=== PATIENT | male | born 1985 | race Caucasian/White ===

== ENCOUNTER 2018-07-13 04:03 | Observation (INO) ==
[2018-07-13 05:45] LABS: Basophils # 0.1 K/mcL (0.0-0.2); Basophils % 0.8 %; Eosinophils % 0.1 %; Hematocrit 47.2 % (37.5-50.1); Hemoglobin 17.4 g/dL (12.9-16.9); Immature Granulocytes % 0.4 % (0-4); Lymphocytes # 2.4 K/mcL (0.6-4.6); Lymphocytes % 30.6 %; Mean Corpuscular HGB Conc 36.9 g/dL (31.6-35.5); Mean Corpuscular Hemoglobin 34.1 pg (28.0-33.3); Mean Corpuscular Volume 92.4 fL (83.0-100.0); Mean Platelet Volume 9.3 fL (9.4-12.4); Monocytes # 0.7 K/mcL (0.0-1.3); Monocytes % 8.5 %; Neutrophils # 4.8 K/mcL (1.6-8.9); Platelet Count 265 K/mcL (140-400); Red Blood Count 5.11 M/mcL (4.19-5.50); Red Cell Distribution Width 12.6 % (11.5-14.5); Segmented Neutrophils % 59.6 %
[2018-07-13 05:51] LABS: Bilirubin,Urine Negative (Negative); Blood,Urine Trace (Negative); Clarity,Urine Clear (Clear); Color,Urine Yellow (Yellow); Glucose,Urine (UA) Normal (Normal); Ketones,Urine 15 mg/dL (Negative); Leukocyte Esterase,Urine Negative (Negative); Nitrite,Urine Negative (Negative); Protein,Urine >=300 mg/dL (Neg-Trace); Specific Gravity,Urine 1.023 (1.010-1.025); Urobilinogen,Urine Normal (Normal)
[2018-07-13 06:02] LABS: Amphetamine Screen,Urine Negative ng/mL (Cutoff=1000); Barbiturate Screen,Urine Positive ng/mL (Cutoff=200); Benzodiazepines Screen,Urine Negative ng/mL (Cutoff=200); Cannabinoid Screen,Urine Positive ng/mL (Cutoff = 50); Cocaine Screen,Urine Negative ng/mL (Cutoff= 300); Opiate Screen,Urine Negative ng/mL (Cutoff=300); Phencyclidine Screen,Urine Negative ng/mL (Cutoff=25)
[2018-07-13 06:07] LABS: RBC,Urine 0-3 per hpf (0-3); Squamous Epithelial Cell,Urine Many per lpf (None-Few)
[2018-07-13 06:09] LABS: Bacteria,Urine Few per hpf (None-Few)
[2018-07-13 06:17] LABS: Blood Urea Nitrogen 7 mg/dL (6-20); Carbon Dioxide 21 mEq/L (23-29); Chloride 98 mEq/L (98-107); Potassium 3.7 mEq/L (3.5-5.1); Sodium 139 mEq/L (136-145)
[2018-07-13 06:18] LABS: Acetaminophen < 10 mcg/mL (10-20); BUN/Creatinine Ratio 9 (6-26); Calcium 9.5 mg/dL (8.6-10.3); Ethanol 256 mg/dL (Less than 10); Glucose 115 mg/dL (70-105); Osmolality,Calculated 287 (280-300); Salicylate < 2.5 mg/dL (15.0-30.0); eGFR For Non-African Americans > 60 (> 60)
[2018-07-13] MEDS ORDERED: *HR* LORazepam 2 MG/ML VIAL IM ONE (07:05)
[2018-07-13] MEDS ORDERED: Thiamine (B-1) 100 MG in D5% in Water 50 ML IVPB ONE (07:05)
[2018-07-13] MEDS ORDERED: MVI, adult with vitamin K 10 ML, Folic Acid 1 MG, Thiamine (B-1) 100 MG in 0.9 % Sodi... IVC ONE (07:05)
[2018-07-13] MEDS ORDERED: 0.9 % Sodium Chloride 1,000 ML IVC ONE (07:05)
[2018-07-13] MEDS ORDERED: Folic Acid 1 MG in D5% in Water 50 ML IVPB ONE (07:05)
--- NOTE | 2018-07-13 07:16 | Emergency Department Note ---
Disposition Clinical Impression: Suicidal ideation, Alcohol abuse Depression Qualifiers: Depression Type: unspecified Qualified Code(s): F32.9 - Major depressive disorder, single episode, unspecified Disposition: Admitted As Inpatient Condition: Fair Referrals: NONE,PCP [Primary Care Provider] - Forms: ED Satisfaction Letter Time of Disposition: 07:47 Psych HPI - General Chief Complaint: ED Psychiatric Symptoms Stated Complaint: psyche Time Seen by Provider: 07/13/18 05:31 Source: patient Mode of arrival: ambulatory Limitations: no limitations Nursing Notes Reviewed: Yes Vital Signs Reviewed: Yes - History of Present Illness HPI Narrative: Nontoxic-appearing 33-year-old male with a history of depression and alcohol abuse presents for evaluation of worsening depression and thoughts of self- harm. This has gradually worsened over a prolonged course. When asked about a plan, he states that "I just wanted to drink myself to ". He denies any significant life stressors that worsened his depression recently. He states that he had been medicated in the past however has not taken his medication for the past 5 months. He denies any thoughts of harming others. He denies any auditory or visual hallucinations. He does admit to heavy alcohol use, his last drink being approximately 12 hours ago. He states that he is a daily drinker the amount varies depending on the situation that day. Pt complaint: suicidal ideation, feels depressed Duration: getting worse History of similar episodes: Yes Improves with: none Worsens with: none Context: recent alcohol abuse Alleged intoxication: Yes Associated Psychiatric Symptoms: depression, suicidal ideation Associated symptoms: Reports: denies other symptoms Traumatic symptoms: denies traumatic injury Self harm or harm to others: admits thoughts of self harm, has plan - Related Data Allergies Allergy/AdvReac Type Severity Reaction Status Date / Time No Known Allergies Allergy Verified 07/13/18 04:12 All systems ED: reviewed and negative except as stated. Review of Systems: As Per HPI Constitutional: Denies: fever, chills, weakness, weight change Eyes: Denies: eye pain, eye discharge, vision change ENT ED: Denies: ear pain, throat pain, dental pain, hearing loss, epistaxis, congestion, dysphagia Cardiovascular: Denies: chest pain, palpitations, dyspnea on exertion, edema, syncope Respiratory: Denies: cough, dyspnea, wheezes, hemoptysis, stridor Gastrointestinal: Denies: abdominal pain, nausea, vomiting, diarrhea, constipation, hematemesis, melena, hematochezia Genitourinary: Denies: urgency, dysuria, frequency, hematuria Musculoskeletal: Denies: back pain, neck pain, arthralgia, myalgia Integumentary: Denies: rash, abrasion, lesions Neurological: Denies: headache, weakness, numbness, paresthesias, confusion, abnormal gait, vertigo Psychiatric: Reports: as per HPI, depression, suicidal thoughts. Denies: anxiety, homicidal thoughts, auditory hallucinations, visual hallucinations Endocrine: Denies: fatigue Hematological/Lymphatic: Denies: easy bleeding, easy bruising Allergic/Immunologic: Denies: facial swelling, urticaria Past Medical History - Past Medical History Attestation: Yes The following information was validated with the patient. Source: patient, nursing notes reviewed Medical history: Reports: no medical history Psychiatric history: Reports: anxiety, depression, PTSD, previous psychiatric hospitalization - Social History Smoking Status: Current every day smoker Alcohol use: Reports: heavy Drug use: Reports: marijuana Physical Exam - General General appearance: alert - Head Head exam: atraumatic, normocephalic, normal inspection - Eye Eye exam: Present: normal appearance, PERRL, EOMI. Absent: nystagmus - ENT ENT exam: mucous membranes moist - Neck Neck exam: Present: normal inspection, full ROM, trachea midline - Chest Chest inspection: Present: normal inspection, symmetric chest wall rise - Respiratory Respiratory exam: Present: normal lung sounds bilaterally. Absent: respiratory distress, wheezes, stridor, accessory muscle use, prolonged expiratory phase - Cardiovascular Cardiovascular exam: Present: regular rate, normal rhythm, normal heart sounds - Abdominal Exam Abdominal exam: Present: soft, Non-Tender, normal bowel sounds - Extremities Exam Extremities exam: Present: normal inspection, full ROM. Absent: tenderness, pedal edema - Neurological Exam Neurological exam: Present: alert, oriented X3 - Psychiatric Psychiatric exam: Present: depressed, anxious - Skin Skin exam: Present: warm, dry, intact, normal color. Absent: rash Course Course Narrative: Given the patient's heavy alcohol use, the patient will be admitted to medicine prior to formal evaluation by inpatient psychiatry. I have discussed this plan with Dr. Rios. Dr. Rios has had a [id number] evaluation with patient and agrees with this plan. Vital Signs Temperature 98.6 F 07/13/18 04:12 Pulse Rate 117 07/13/18 04:12 Respiratory Rate 20 07/13/18 04:12 Blood Pressure 139/95 07/13/18 04:12 O2 Sat by Pulse Oximetry 07/13/18 04:12 Temperature 98.6 F 07/13/18 04:12 Pulse Rate 117 07/13/18 04:12 Respiratory Rate 20 07/13/18 04:12 Blood Pressure 139/95 07/13/18 04:12 O2 Sat by Pulse Oximetry 07/13/18 04:12 Oxygen Delivery Oxygen Delivery Room Air Psych - Lab Data Lab results reviewed: Yes I reviewed the patient's lab results. Lab results narrative: Lab Results 07/13/18 07/13/18 07/13/18 Range/Units 05:14 05:14 05:29 WBC 8.0 (4.3-11.1) K/mcL RBC 5.11 (4.19-5.50) M/mcL Hgb 17.4 H (12.9-16.9) g/dL Hct 47.2 (37.5-50.1) % MCV 92.4 (83.0-100.0) fL MCH 34.1 H (28.0-33.3) pg MCHC 36.9 H (31.6-35.5) g/dL RDW 12.6 (11.5-14.5) % Plt Count 265 (140-400) K/mcL MPV 9.3 L (9.4-12.4) fL Immature Gran % 0.4 (0-4) % Seg Neutrophils % 59.6 % Lymphocytes % 30.6 % Monocytes % 8.5 % Eosinophils % 0.1 % Basophils % 0.8 % Neutrophils # 4.8 (1.6-8.9) K/mcL Lymphocytes # 2.4 (0.6-4.6) K/mcL Monocytes # 0.7 (0.0-1.3) K/mcL Eosinophils # 0.0 (0.0-0.6) K/mcL Basophils # 0.1 (0.0-0.2) K/mcL Sodium (136-145) mEq/L Potassium (3.5-5.1) mEq/L Chloride (98-107) mEq/L Carbon Dioxide (23-29) mEq/L BUN (6-20) mg/dL Creatinine (0.70-1.30) mg/dL Est GFR ( Amer) (> 60) Est GFR (Non-Af Amer) (> 60) BUN/Creatinine Ratio (6-26) Glucose (70-105) mg/dL Calculated Osmolality (280-300) Calcium (8.6-10.3) mg/dL Phosphorus (2.7-4.5) mg/dL Magnesium (1.6-2.6) mg/dL Urine Color Yellow (Yellow) Urine Clarity Clear (Clear) Urine pH 6.0 (5.0-8.0) pH Units Ur Specific [place] 1.023 (1.010-1.025) Urine Protein >=300 H (Neg-Trace) mg/dL Urine Glucose (UA) Normal (Normal) mg/dL Urine Ketones 15 H (Negative) mg/dL Urine Blood Trace H (Negative) Urine Nitrite Negative (Negative) Urine Bilirubin Negative (Negative) Urine Urobilinogen Normal (Normal) mg/dL Ur Leukocyte Esterase Negative (Negative) Urine Microscopic RBC 0-3 (0-3) per hpf Urine Microscopic WBC 5-15 H (0-3) per hpf Ur Squamous Epith Cells Many H (None-Few) per lpf Urine Bacteria Few (None-Few) per hpf Salicylates (15.0-30.0) mg/dL Urine Opiates Screen Negative (Xyswac=925) ng/mL Acetaminophen (10-20) mcg/mL Ur Barbiturates Screen Positive H (Rviseb=978) ng/mL Ur Phencyclidine Scrn Negative (Cutoff=25) ng/mL Ur Amphetamines Screen Negative (Vnsbbo=4692) ng/mL U Benzodiazepines Scrn Negative (Uuhtpp=244) ng/mL Urine Cocaine Screen Negative (Cutoff= 300) ng/mL U Marijuana (THC) Screen Positive H (Cutoff = 50) ng/mL Ur Drug Screen Interp See Below Ethyl Alcohol (Less than 10) mg/dL 07/13/18 07/13/18 Range/Units 05:29 07:06 WBC (4.3-11.1) K/mcL RBC (4.19-5.50) M/mcL Hgb (12.9-16.9) g/dL Hct (37.5-50.1) % MCV (83.0-100.0) fL MCH (28.0-33.3) pg MCHC (31.6-35.5) g/dL RDW (11.5-14.5) % Plt Count (140-400) K/mcL MPV (9.4-12.4) fL Immature Gran % (0-4) % Seg Neutrophils % % Lymphocytes % % Monocytes % % Eosinophils % % Basophils % % Neutrophils # (1.6-8.9) K/mcL Lymphocytes # (0.6-4.6) K/mcL Monocytes # (0.0-1.3) K/mcL Eosinophils # (0.0-0.6) K/mcL Basophils # (0.0-0.2) K/mcL Sodium 139 (136-145) mEq/L Potassium 3.7 (3.5-5.1) mEq/L Chloride 98 (98-107) mEq/L Carbon Dioxide 21 L (23-29) mEq/L BUN 7 (6-20) mg/dL Creatinine 0.80 (0.70-1.30) mg/dL Est GFR ( Amer) > 60 (> 60) Est GFR (Non-Af Amer) > 60 (> 60) BUN/Creatinine Ratio 9 (6-26) Glucose 115 H (70-105) mg/dL Calculated Osmolality 287 (280-300) Calcium 9.5 (8.6-10.3) mg/dL Phosphorus 1.8 L (2.7-4.5) mg/dL Magnesium 2.0 (1.6-2.6) mg/dL Urine Color (Yellow) Urine Clarity (Clear) Urine pH (5.0-8.0) pH Units Ur Specific [place] (1.010-1.025) Urine Protein (Neg-Trace) mg/dL Urine Glucose (UA) (Normal) mg/dL Urine Ketones (Negative) mg/dL Urine Blood (Negative) Urine Nitrite (Negative) Urine Bilirubin (Negative) Urine Urobilinogen (Normal) mg/dL Ur Leukocyte Esterase (Negative) Urine Microscopic RBC (0-3) per hpf Urine Microscopic WBC (0-3) per hpf Ur Squamous Epith Cells (None-Few) per lpf Urine Bacteria (None-Few) per hpf Salicylates < 2.5 L (15.0-30.0) mg/dL Urine Opiates Screen (Olvasi=497) ng/mL Acetaminophen < 10 L (10-20) mcg/mL Ur Barbiturates Screen (Rhozdv=449) ng/mL Ur Phencyclidine Scrn (Cutoff=25) ng/mL Ur Amphetamines Screen (Hslrko=4996) ng/mL U Benzodiazepines Scrn (Rqcqrj=020) ng/mL Urine Cocaine Screen (Cutoff= 300) ng/mL U Marijuana (THC) Screen (Cutoff = 50) ng/mL Ur Drug Screen Interp Ethyl Alcohol 256 H (Less than 10) mg/dL Result diagrams: 07/13/18 05:29 07/13/18 05:29 Lab Results 07/13/18 07/13/18 07/13/18 Range/Units 05:14 05:14 05:29 WBC 8.0 (4.3-11.1) K/mcL RBC 5.11 (4.19-5.50) M/mcL Hgb 17.4 H (12.9-16.9) g/dL Hct 47.2 (37.5-50.1) % MCV 92.4 (83.0-100.0) fL MCH 34.1 H (28.0-33.3) pg MCHC 36.9 H (31.6-35.5) g/dL RDW 12.6 (11.5-14.5) % Plt Count 265 (140-400) K/mcL MPV 9.3 L (9.4-12.4) fL Immature Gran % 0.4 (0-4) % Seg Neutrophils % 59.6 % Lymphocytes % 30.6 % Monocytes % 8.5 % Eosinophils % 0.1 % Basophils % 0.8 % Neutrophils # 4.8 (1.6-8.9) K/mcL Lymphocytes # 2.4 (0.6-4.6) K/mcL Monocytes # 0.7 (0.0-1.3) K/mcL Eosinophils # 0.0 (0.0-0.6) K/mcL Basophils # 0.1 (0.0-0.2) K/mcL Sodium (136-145) mEq/L Potassium (3.5-5.1) mEq/L Chloride (98-107) mEq/L Carbon Dioxide (23-29) mEq/L BUN (6-20) mg/dL Creatinine (0.70-1.30) mg/dL Est GFR ( Amer) (> 60) Est GFR (Non-Af Amer) (> 60) BUN/Creatinine Ratio (6-26) Glucose (70-105) mg/dL Calculated Osmolality (280-300) Calcium (8.6-10.3) mg/dL Phosphorus (2.7-4.5) mg/dL Magnesium (1.6-2.6) mg/dL Urine Color Yellow (Yellow) Urine Clarity Clear (Clear) Urine pH 6.0 (5.0-8.0) pH Units Ur Specific [place] 1.023 (1.010-1.025) Urine Protein >=300 H (Neg-Trace) mg/dL Urine Glucose (UA) Normal (Normal) mg/dL Urine Ketones 15 H (Negative) mg/dL Urine Blood Trace H (Negative) Urine Nitrite Negative (Negative) Urine Bilirubin Negative (Negative) Urine Urobilinogen Normal (Normal) mg/dL Ur Leukocyte Esterase Negative (Negative) Urine Microscopic RBC 0-3 (0-3) per hpf Urine Microscopic WBC 5-15 H (0-3) per hpf Ur Squamous Epith Cells Many H (None-Few) per lpf Urine Bacteria Few (None-Few) per hpf Salicylates (15.0-30.0) mg/dL Urine Opiates Screen Negative (Igdyos=072) ng/mL Acetaminophen (10-20) mcg/mL Ur Barbiturates Screen Positive H (Acqrfg=663) ng/mL Ur Phencyclidine Scrn Negative (Cutoff=25) ng/mL Ur Amphetamines Screen Negative (Julxvc=8711) ng/mL U Benzodiazepines Scrn Negative (Ulliue=127) ng/mL Urine Cocaine Screen Negative (Cutoff= 300) ng/mL U Marijuana (THC) Screen Positive H (Cutoff = 50) ng/mL Ur Drug Screen Interp See Below Ethyl Alcohol (Less than 10) mg/dL 07/13/18 07/13/18 Range/Units 05:29 07:06 WBC (4.3-11.1) K/mcL RBC (4.19-5.50) M/mcL Hgb (12.9-16.9) g/dL Hct (37.5-50.1) % MCV (83.0-100.0) fL MCH (28.0-33.3) pg MCHC (31.6-35.5) g/dL RDW (11.5-14.5) % Plt Count (140-400) K/mcL MPV (9.4-12.4) fL Immature Gran % (0-4) % Seg Neutrophils % % Lymphocytes % % Monocytes % % Eosinophils % % Basophils % % Neutrophils # (1.6-8.9) K/mcL Lymphocytes # (0.6-4.6) K/mcL Monocytes # (0.0-1.3) K/mcL Eosinophils # (0.0-0.6) K/mcL Basophils # (0.0-0.2) K/mcL Sodium 139 (136-145) mEq/L Potassium 3.7 (3.5-5.1) mEq/L Chloride 98 (98-107) mEq/L Carbon Dioxide 21 L (23-29) mEq/L BUN 7 (6-20) mg/dL Creatinine 0.80 (0.70-1.30) mg/dL Est GFR ( Amer) > 60 (> 60) Est GFR (Non-Af Amer) > 60 (> 60) BUN/Creatinine Ratio 9 (6-26) Glucose 115 H (70-105) mg/dL Calculated Osmolality 287 (280-300) Calcium 9.5 (8.6-10.3) mg/dL Phosphorus 1.8 L (2.7-4.5) mg/dL Magnesium 2.0 (1.6-2.6) mg/dL Urine Color (Yellow) Urine Clarity (Clear) Urine pH (5.0-8.0) pH Units Ur Specific [place] (1.010-1.025) Urine Protein (Neg-Trace) mg/dL Urine Glucose (UA) (Normal) mg/dL Urine Ketones (Negative) mg/dL Urine Blood (Negative) Urine Nitrite (Negative) Urine Bilirubin (Negative) Urine Urobilinogen (Normal) mg/dL Ur Leukocyte Esterase (Negative) Urine Microscopic RBC (0-3) per hpf Urine Microscopic WBC (0-3) per hpf Ur Squamous Epith Cells (None-Few) per lpf Urine Bacteria (None-Few) per hpf Salicylates < 2.5 L (15.0-30.0) mg/dL Urine Opiates Screen (Pggtci=354) ng/mL Acetaminophen < 10 L (10-20) mcg/mL Ur Barbiturates Screen (Oukzob=735) ng/mL Ur Phencyclidine Scrn (Cutoff=25) ng/mL Ur Amphetamines Screen (Jluwpq=3986) ng/mL U Benzodiazepines Scrn (Jmtyfx=222) ng/mL Urine Cocaine Screen (Cutoff= 300) ng/mL U Marijuana (THC) Screen (Cutoff = 50) ng/mL Ur Drug Screen Interp Ethyl Alcohol 256 H (Less than 10) mg/dL Psychiatric Medical Clearance - Medical Clearance Checklist Medical History: No Social History Section defined Current Vitals: Last Vital Signs Temp 98.6 F 07/13/18 04:12 Pulse 117 07/13/18 04:12 Resp 20 07/13/18 04:12 BP 139/95 07/13/18 04:12 Pulse Ox 95 07/13/18 04:12 Psychiatric Lab Panel: Drug Levels and Toxicity 07/13/18 07/13/18 05:14 05:29 Urine Opiates Screen Negative Acetaminophen < 10 L Ur Barbiturates Screen Positive H Ur Phencyclidine Scrn Negative Ur Amphetamines Screen Negative U Benzodiazepines Scrn Negative Urine Cocaine Screen Negative U Marijuana (THC) Screen Positive H Ethyl Alcohol 256 H Abnormal Labs: Abnormal lab results Hgb 17.4 g/dL (12.9-16.9) H 07/13/18 05:29 MCH 34.1 pg (28.0-33.3) H 07/13/18 05:29 MCHC 36.9 g/dL (31.6-35.5) H 07/13/18 05:29 MPV 9.3 fL (9.4-12.4) L 07/13/18 05:29 Carbon Dioxide 21 mEq/L (23-29) L 07/13/18 05:29 Glucose 115 mg/dL (70-105) H 07/13/18 05:29 Phosphorus 1.8 mg/dL (2.7-4.5) L 07/13/18 07:06 Urine Protein >=300 mg/dL (Neg-Trace) H 07/13/18 05:14 Urine Ketones 15 mg/dL (Negative) H 07/13/18 05:14 Urine Blood Trace (Negative) H 07/13/18 05:14 Urine Microscopic WBC 5-15 per hpf (0-3) H 07/13/18 05:14 Ur Squamous Epith Cells Many per lpf (None-Few) H 07/13/18 05:14 Salicylates < 2.5 mg/dL (15.0-30.0) L 07/13/18 05:29 Acetaminophen < 10 mcg/mL (10-20) L 07/13/18 05:29 Ur Barbiturates Screen Positive ng/mL (Igsnpv=964) H 07/13/18 05:14 U Marijuana (THC) Screen Positive ng/mL (Cutoff = 50) H 07/13/18 05:14 Ethyl Alcohol 256 mg/dL (Less than 10) H 07/13/18 05:29 Statement of Medical Clearance: I have evaluated the patient, reviewed diagnostic information, and certify that the patient's medical condition is sufficiently stable that transfer to the psychiatric unit does not pose a significant risk of deterioration.
--- NOTE | 2018-07-13 07:34 | Emergency Department Note ---
Disposition Clinical Impression: Suicidal ideation, Depression, Alcohol abuse Disposition: Admitted As Inpatient Condition: Fair General Adult HPI - General Chief complaint: ED Psychiatric Symptoms Stated complaint: psyche Time Seen by Provider: 07/13/18 05:31 Source: patient Mode of arrival: ambulatory Limitations: no limitations - History of Present Illness Pain Scale: 0 - Related Data Home Medications Medication Instructions Recorded Confirmed Prazosin HCl [Minipress] 5 mg PO HS 07/13/18 07/13/18 Allergies Allergy/AdvReac Type Severity Reaction Status Date / Time No Known Allergies Allergy Verified 07/13/18 09:25 Constitutional: Denies: fever, chills, weakness, weight change Eyes: Denies: eye pain, eye discharge, vision change ENT ED: Denies: ear pain, throat pain, dental pain, hearing loss, epistaxis, congestion, dysphagia Cardiovascular: Denies: chest pain, palpitations, dyspnea on exertion, edema, syncope Respiratory: Denies: cough, dyspnea, wheezes, hemoptysis, stridor Gastrointestinal: Denies: abdominal pain, nausea, vomiting, diarrhea, constipation, hematemesis, melena, hematochezia Genitourinary: Denies: urgency, dysuria, frequency, hematuria Musculoskeletal: Denies: back pain, neck pain, arthralgia, myalgia Integumentary: Denies: rash, abrasion, lesions Neurological: Denies: headache, weakness, numbness, paresthesias, confusion, abnormal gait, vertigo Psychiatric: Reports: as per HPI, depression, suicidal thoughts. Denies: anxiety, homicidal thoughts, auditory hallucinations, visual hallucinations Endocrine: Denies: fatigue Hematological/Lymphatic: Denies: easy bleeding, easy bruising Allergic/Immunologic: Denies: facial swelling, urticaria Past Medical History - Past Medical History Medical history: Reports: no medical history Psychiatric history: Reports: anxiety, depression, PTSD, previous psychiatric hospitalization - Social History Smoking Status: Current every day smoker Alcohol use: Reports: heavy Drug use: Reports: marijuana Physical Exam - General Limitations: no limitations General appearance: alert Course Vital Signs Temperature 98.6 F 07/13/18 04:12 Pulse Rate 117 07/13/18 04:12 Respiratory Rate 20 07/13/18 04:12 Blood Pressure 139/95 07/13/18 04:12 O2 Sat by Pulse Oximetry 95 07/13/18 04:12 Temperature 98.4 F 07/13/18 16:59 Pulse Rate 84 07/13/18 16:59 Respiratory Rate 16 07/13/18 16:59 Blood Pressure 138/77 07/13/18 16:59 O2 Sat by Pulse Oximetry 95 07/13/18 16:59 Oxygen Delivery Oxygen Delivery Room Air Medical Decision Making - Lab Data Result diagrams: 07/13/18 05:29 07/13/18 05:29 Lab Results 07/13/18 07/13/18 07/13/18 Range/Units 05:14 05:14 05:29 WBC 8.0 (4.3-11.1) K/mcL RBC 5.11 (4.19-5.50) M/mcL Hgb 17.4 H (12.9-16.9) g/dL Hct 47.2 (37.5-50.1) % MCV 92.4 (83.0-100.0) fL MCH 34.1 H (28.0-33.3) pg MCHC 36.9 H (31.6-35.5) g/dL RDW 12.6 (11.5-14.5) % Plt Count 265 (140-400) K/mcL MPV 9.3 L (9.4-12.4) fL Immature Gran % 0.4 (0-4) % Seg Neutrophils % 59.6 % Lymphocytes % 30.6 % Monocytes % 8.5 % Eosinophils % 0.1 % Basophils % 0.8 % Neutrophils # 4.8 (1.6-8.9) K/mcL Lymphocytes # 2.4 (0.6-4.6) K/mcL Monocytes # 0.7 (0.0-1.3) K/mcL Eosinophils # 0.0 (0.0-0.6) K/mcL Basophils # 0.1 (0.0-0.2) K/mcL Sodium (136-145) mEq/L Potassium (3.5-5.1) mEq/L Chloride (98-107) mEq/L Carbon Dioxide (23-29) mEq/L BUN (6-20) mg/dL Creatinine (0.70-1.30) mg/dL Est GFR ( Amer) (> 60) Est GFR (Non-Af Amer) (> 60) BUN/Creatinine Ratio (6-26) Glucose (70-105) mg/dL Calculated Osmolality (280-300) Calcium (8.6-10.3) mg/dL Phosphorus (2.7-4.5) mg/dL Magnesium (1.6-2.6) mg/dL Urine Color Yellow (Yellow) Urine Clarity Clear (Clear) Urine pH 6.0 (5.0-8.0) pH Units Ur Specific [place] 1.023 (1.010-1.025) Urine Protein >=300 H (Neg-Trace) mg/dL Urine Glucose (UA) Normal (Normal) mg/dL Urine Ketones 15 H (Negative) mg/dL Urine Blood Trace H (Negative) Urine Nitrite Negative (Negative) Urine Bilirubin Negative (Negative) Urine Urobilinogen Normal (Normal) mg/dL Ur Leukocyte Esterase Negative (Negative) Urine Microscopic RBC 0-3 (0-3) per hpf Urine Microscopic WBC 5-15 H (0-3) per hpf Ur Squamous Epith Cells Many H (None-Few) per lpf Urine Bacteria Few (None-Few) per hpf Salicylates (15.0-30.0) mg/dL Urine Opiates Screen Negative (Udxqty=506) ng/mL Acetaminophen (10-20) mcg/mL Ur Barbiturates Screen Positive H (Jqimdc=774) ng/mL Ur Phencyclidine Scrn Negative (Cutoff=25) ng/mL Ur Amphetamines Screen Negative (Fgbxct=3755) ng/mL U Benzodiazepines Scrn Negative (Idzsnc=106) ng/mL Urine Cocaine Screen Negative (Cutoff= 300) ng/mL U Marijuana (THC) Screen Positive H (Cutoff = 50) ng/mL Ur Drug Screen Interp See Below Ethyl Alcohol (Less than 10) mg/dL 07/13/18 07/13/18 Range/Units 05:29 07:06 WBC (4.3-11.1) K/mcL RBC (4.19-5.50) M/mcL Hgb (12.9-16.9) g/dL Hct (37.5-50.1) % MCV (83.0-100.0) fL MCH (28.0-33.3) pg MCHC (31.6-35.5) g/dL RDW (11.5-14.5) % Plt Count (140-400) K/mcL MPV (9.4-12.4) fL Immature Gran % (0-4) % Seg Neutrophils % % Lymphocytes % % Monocytes % % Eosinophils % % Basophils % % Neutrophils # (1.6-8.9) K/mcL Lymphocytes # (0.6-4.6) K/mcL Monocytes # (0.0-1.3) K/mcL Eosinophils # (0.0-0.6) K/mcL Basophils # (0.0-0.2) K/mcL Sodium 139 (136-145) mEq/L Potassium 3.7 (3.5-5.1) mEq/L Chloride 98 (98-107) mEq/L Carbon Dioxide 21 L (23-29) mEq/L BUN 7 (6-20) mg/dL Creatinine 0.80 (0.70-1.30) mg/dL Est GFR ( Amer) > 60 (> 60) Est GFR (Non-Af Amer) > 60 (> 60) BUN/Creatinine Ratio 9 (6-26) Glucose 115 H (70-105) mg/dL Calculated Osmolality 287 (280-300) Calcium 9.5 (8.6-10.3) mg/dL Phosphorus 1.8 L (2.7-4.5) mg/dL Magnesium 2.0 (1.6-2.6) mg/dL Urine Color (Yellow) Urine Clarity (Clear) Urine pH (5.0-8.0) pH Units Ur Specific [place] (1.010-1.025) Urine Protein (Neg-Trace) mg/dL Urine Glucose (UA) (Normal) mg/dL Urine Ketones (Negative) mg/dL Urine Blood (Negative) Urine Nitrite (Negative) Urine Bilirubin (Negative) Urine Urobilinogen (Normal) mg/dL Ur Leukocyte Esterase (Negative) Urine Microscopic RBC (0-3) per hpf Urine Microscopic WBC (0-3) per hpf Ur Squamous Epith Cells (None-Few) per lpf Urine Bacteria (None-Few) per hpf Salicylates < 2.5 L (15.0-30.0) mg/dL Urine Opiates Screen (Sgkxyr=993) ng/mL Acetaminophen < 10 L (10-20) mcg/mL Ur Barbiturates Screen (Lepqxv=479) ng/mL Ur Phencyclidine Scrn (Cutoff=25) ng/mL Ur Amphetamines Screen (Mofmoe=4083) ng/mL U Benzodiazepines Scrn (Rwjgzl=520) ng/mL Urine Cocaine Screen (Cutoff= 300) ng/mL U Marijuana (THC) Screen (Cutoff = 50) ng/mL Ur Drug Screen Interp Ethyl Alcohol 256 H (Less than 10) mg/dL Attestation Statement - Attestation Attestation: For this encounter, I have reviewed the [employer] or PA documentation, treatment plan, and medical decision making; and I have had face to face time with this patient. [id number] time provided Patient with a known history of heavy alcohol use. Resting completely the time of exam. He appears in no acute distress
[2018-07-13 07:40] LABS: Phosphorous 1.8 mg/dL (2.7-4.5)
[2018-07-13] MEDS ORDERED: Naloxone 0.4 MG/ML INJ IVP PRN (07:47)
[2018-07-13] MEDS ORDERED: *HR* LORazepam 2 MG/ML VIAL IVP PRN (07:48)
[2018-07-13] MEDS: 0.9 % Sodium Chloride 1,000 ML IVC SCH ×2 (08:39→21:48)
[2018-07-13] MEDS ORDERED: Ondansetron 4 MG/2 ML VIAL IVP PRN (11:06)
--- NOTE | 2018-07-13 11:12 | Internal Med History&Physical ---
Date of Encounter: 07/13/18 Time of Encounter: 11:10 Internal Medicine - H&P: HPI Chief complaint: Suicidal ideation, been depressed and been drinking too much History of present illness: Mr. Perdomo is a 33 year old male with pmh of depression, PTSD, chronic alcohol abuse presenting with complaints of ongoing depression, thoughts of self harm by drinking himself to and severe alcohol abuse. Patient notes he has had severe ongoing depression and he called the suicide hotline at the [facility] yesterday who referred him to the ER. Says his depression is getting worse and intends to kill himself by drinking himself to . Last drink was yesterday. And he drinks everyday. Came to the ER for suicidal ideation In the ER, he was noted to be having tremors, BAl was elevated in the 250s and he was started on CIWA protocol and is being admitted for further management. Past Med Surg Social Fam HX - Past Medical History Medical history: no medical history Psychiatric history: anxiety, depression, PTSD, previous psychiatric hospitalization - Past Surgical History Additional surgical history: right wrist, lymph node - Social History Smoking Status: Current every day smoker Alcohol use: heavy Drug use: marijuana Internal Medicine - H&P: Meds Prazosin HCl [Minipress] 5 mg PO HS 07/13/18 [History] 3 Allergy/AdvReac Type Severity Reaction Status Date / Time No Known Allergies Allergy Verified 07/13/18 09:25 All Systems PM: A 10-system review of systems was performed and is negative for pertinent findings except as documented above in the HPI. - Constitutional Constitutional: no chills, no fever(s), no night sweats - EENT Eyes: no change in vision, no discharge, no pain, no photophobia Ears: no ear discharge, no ear pain, no tinnitus Nose, mouth and throat: no dysphagia, no nasal discharge, no neck pain, no sore throat - Cardiovascular Cardiovascular ROS IM: no chest pain, no diaphoresis, no dyspnea, no lightheadedness, no palpitations, no syncope - Respiratory Respiratory: no cough, no dyspnea, no wheezing, no excessive phlegm production - Gastrointestinal Gastrointestinal: no abdominal pain, no diarrhea, no hematemesis, no hematochezia, no melena, no nausea, no vomiting - Musculoskeletal Musculoskeletal ROS IM: no numbness, no tingling - Integumentary Integumentary IM: no rash, no unusual bruising - Neurological Neurological ROS: no confusion, no convulsions, no focal weakness, no numbness, no tingling, no tremor(s) - Psychiatric Psychiatric: depression, irritability, mood swings, suicidal ideation - Hematologic/Lymphatic Hematologic/Lymphatic: no easy bruising - Constitutional Vitals: Temp Pulse Resp BP Pulse Ox 98.6 F 92 20 140/79 98 07/13/18 04:12 07/13/18 08:14 07/13/18 08:14 07/13/18 08:14 07/13/18 08:14 Exam: Has tremors - Head Head exam: Present: atraumatic, normocephalic - Eye Eye exam: Present: PERRL, conjuntiva pink, sclera anicteric Pupils: Present: PERRL - Neck Neck exam general surgery: Present: supple, trachea midline. Absent: lymphadenopathy - Respiratory Respiratory exam: Present: CTAB. Absent: accessory muscle use, rales, rhonchi, wheezes - Cardiovascular Cardiovascular exam: Present: RRR, +S1, +S2. Absent: diastolic murmur, gallop, rubs, systolic murmur - GI/Abdominal GI/Abdominal exam: Present: normal bowel sounds, soft, no peritoneal signs. Absent: distended, tenderness - Extremities Exam Extremities exam: Present: warm, radial pulses palpable and symmetrical. Absent : calf tenderness, cyanotic, pedal edema - Neurological Exam Neurological exam: Present: CN II-XII intact, oriented X3, no focal deficits. Absent: pronater drift, facial droop, speech deficit - Skin Skin exam: Present: dry, intact Internal Med - H&P Results - Labs CBC & Chem 7: 07/13/18 05:29 07/13/18 05:29 - Assessment and plan (1) Acute hyperactive alcohol withdrawal delirium Current Visit: Yes Status: Acute Assessment and plan: Pt has tremors at rest with nausea. Will start on CIWA protocol with banana bag , IV fluids and PRN ativan Continue supportive care (2) Alcohol abuse Current Visit: Yes Status: Acute Assessment and plan: See# 1 (3) Depression Current Visit: Yes Status: Acute Assessment and plan: Patient has major depression with suicdal ideation Psych consulted and appreciate recs Qualifiers: Depression Type: major depressive disorder Qualified Code(s): F32.9 - Major depressive disorder, single episode, unspecified (4) Suicidal ideation Current Visit: Yes Status: Acute Assessment and plan: Plan to self harm with alcohol overdose. Psychiatry consulted and appreciate recs (5) DVT prophylaxis Current Visit: Yes Status: Acute Assessment and plan: Heparin sc - Time Spent With Patient Total time spent is greater than 50% in coordination of care (as documented) at patient's floor/unit and/or counseling patient:
[2018-07-13] MEDS: *HR* LORazepam 2 MG/ML VIAL IVP PRN ×4 (11:34→21:49)
[2018-07-13] MEDS: *HR* Heparin 5,000 UNIT/ML VIAL SQ SCH (17:41)
[2018-07-13] MEDS ORDERED: Acetaminophen 325 MG TABLET PO PRN (17:53)
[2018-07-13] MEDS: Thiamine (B-1) 100 MG, Folic Acid 1 MG, MVI, adult with vitamin K 10 ML in 0.9 % Sodi... IVPB SCH (18:47)
[2018-07-14] MEDS: 0.9 % Sodium Chloride 1,000 ML IVC SCH ×2 (04:15→21:26)
[2018-07-14 05:04] LABS: Basophils # 0.1 K/mcL (0.0-0.2); Basophils % 0.6 %; Eosinophils % 0.5 %; Hematocrit 41.8 % (37.5-50.1); Immature Granulocytes % 0.4 % (0-4); Lymphocytes % 25.5 %; Mean Corpuscular HGB Conc 36.6 g/dL (31.6-35.5); Mean Corpuscular Hemoglobin 34.2 pg (28.0-33.3); Mean Corpuscular Volume 93.5 fL (83.0-100.0); Monocytes # 0.9 K/mcL (0.0-1.3); Monocytes % 11.7 %; Neutrophils # 4.9 K/mcL (1.6-8.9); Platelet Count 186 K/mcL (140-400); Red Blood Count 4.47 M/mcL (4.19-5.50); Red Cell Distribution Width 12.2 % (11.5-14.5); Segmented Neutrophils % 61.3 %
[2018-07-14 05:08] LABS: Hemoglobin 15.3 g/dL (12.9-16.9)
[2018-07-14] MEDS: *HR* Heparin 5,000 UNIT/ML VIAL SQ SCH ×2 (05:19→18:03)
[2018-07-14] MEDS: *HR* LORazepam 2 MG/ML VIAL IVP PRN ×3 (05:20→21:27)
[2018-07-14 05:23] LABS: BUN/Creatinine Ratio 7 (6-26); Blood Urea Nitrogen 5 mg/dL (6-20); Calcium 9.2 mg/dL (8.6-10.3); Carbon Dioxide 24 mEq/L (23-29); Chloride 101 mEq/L (98-107); Glucose 85 mg/dL (70-105); Magnesium 1.7 mg/dL (1.6-2.6); Osmolality,Calculated 279 (280-300); Phosphorous 2.1 mg/dL (2.7-4.5); Potassium 3.5 mEq/L (3.5-5.1); Sodium 136 mEq/L (136-145); eGFR For Non-African Americans > 60 (> 60)
--- NOTE | 2018-07-14 12:52 | Internal Med Progress Note ---
Hospitalist Progress Note - Encounter Date of Encounter: 07/14/18 Time of Encounter: 12:15 - Subjective Interval History: H&P reviewed. Admitted for suicidal ideation in the setting of alcohol intoxication. History of multiple psychiatric conditions. Sitter in place, the only complaint at this point is him being "miserable" and shaky. - Exam Vitals: Temp Pulse Resp BP Pulse Ox 98.1 F 71 18 139/83 94 07/14/18 07:50 07/14/18 07:50 07/14/18 07:50 07/14/18 07:50 07/14/18 07:50 Exam: General: Alert and oriented, mild distress HEENT:EOMI, pupils equal, round and reactive. Cardiovascular:Normal S1 & S2, No JVD. Pulse regular. Lungs: clear to auscultation, no wheezes/rales Abdomen:Soft, non-tender, no rigidity. Extremities:No deformity or swelling, mildly tremulous on both UE Neuro: Alert and oriented 3, no focal deficits. - Assessment and Plan (1) Acute hyperactive alcohol withdrawal delirium Current Visit: Yes Status: Acute Assessment and Plan: Pt has tremors at rest with nausea. Required IV ativan 2-4 mg every 4 hours Continue CIWA protocol, continue IVF, folate, thiamine (2) Suicidal ideation Current Visit: Yes Status: Acute Assessment and Plan: Plan to self harm with alcohol overdose. Psychiatry consulted and appreciate recs (3) Depression Current Visit: Yes Status: Acute Assessment and Plan: Patient has major depression with suicidal ideation Psych consulted and appreciate recs (4) DVT prophylaxis Current Visit: Yes Status: Acute Assessment and Plan: Heparin SQ - Time Spent with Patient Total time spent is greater than 50% in coordination of care (as documented) at patient's floor/unit and/or counseling patient: Plan of Care Discussed with: patient Internal Medicine: Result - Labs CBC & Chem 7: 07/14/18 04:21 07/14/18 04:21 Labs: Short CBC 07/14/18 Range/Units 04:21 WBC 8.0 (4.3-11.1) K/mcL Hgb 15.3 D (12.9-16.9) g/dL Hct 41.8 (37.5-50.1) % Plt Count 186 (140-400) K/mcL Neutrophils # 4.9 (1.6-8.9) K/mcL [facility] 07/14/18 04:21 Sodium 136 Potassium 3.5 Chloride 101 Carbon Dioxide 24 BUN 5 L Creatinine 0.73 Glucose 85 Calcium 9.2 Consult Discharge Plan - Plan Referrals: NONE,PCP [Primary Care Provider] - (3) Depression Qualifiers: Depression Type: major depressive disorder Qualified Code(s): F32.9 - Major depressive disorder, single episode, unspecified
--- NOTE | 2018-07-14 13:56 | Psychiatry Progress Note ---
Date of Encounter: 07/14/18 Time of Encounter: 13:30 Subjective Interval history: Psychiatric consultation note: 33 years old male admitted with alcohol intoxication and suicidal ideation. UDS was positive for THC and barbiturates. Alcohol level was 256. Patient is currently treated with CIWA scale and scoring 10, 8, 3. Psychiatric consultation was requested to evaluate and recommend medication. On interview patient is deeply asleep lethargic and snoring and could not be awakened. Patient is treated at the [facility] in [place]. Nursing staff reports he has a psychiatrist in the [facility] and a counselor. Results - Vital Signs Vital Signs: Temp Pulse Resp BP Pulse Ox 98.1 F 71 18 139/83 94 07/14/18 07:50 07/14/18 07:50 07/14/18 07:50 07/14/18 07:50 07/14/18 07:50 - Labs Labs: Laboratory Results - last 24 hr 07/14/18 07/14/18 04:21 04:21 WBC 8.0 RBC 4.47 Hgb 15.3 D Hct 41.8 MCV 93.5 MCH 34.2 H MCHC 36.6 H RDW 12.2 Plt Count 186 MPV 10.0 Immature Gran % 0.4 Seg Neutrophils % 61.3 Lymphocytes % 25.5 Monocytes % 11.7 Eosinophils % 0.5 Basophils % 0.6 Neutrophils # 4.9 Lymphocytes # 2.0 Monocytes # 0.9 Eosinophils # 0.0 Basophils # 0.1 Sodium 136 Potassium 3.5 Chloride 101 Carbon Dioxide 24 BUN 5 L Creatinine 0.73 Est GFR ( Amer) > 60 Est GFR (Non-Af Amer) > 60 BUN/Creatinine Ratio 7 Glucose 85 Calculated Osmolality 279 L Calcium 9.2 Phosphorus 2.1 L Magnesium 1.7 Assessment and Plan (1) Acute hyperactive alcohol withdrawal delirium Current visit: Yes Status: Acute Additional Plan: 1. Continue medical stabilization 2. When medically stable we recommend admission to the [facility] where his care is established. Thank you for consultation. Consult Discharge Plan - Plan Referrals: NONE,PCP [Primary Care Provider] - Psychiatry Exam - Constitutional Vitals: Temp Pulse Resp BP Pulse Ox 98.1 F 71 18 139/83 94 07/14/18 07:50 07/14/18 07:50 07/14/18 07:50 07/14/18 07:50 07/14/18 07:50 Additional observations: Deeply asleep and lethargic. Could not be interviewed.
[2018-07-14] MEDS: Thiamine (B-1) 100 MG, Folic Acid 1 MG, MVI, adult with vitamin K 10 ML in 0.9 % Sodi... IVPB SCH (18:22)
[2018-07-14] MEDS ORDERED: Melatonin 3 MG TABLET PO PRN (21:52)
[2018-07-15] MEDS ORDERED: *HR* LORazepam 2 MG/ML VIAL IVP ONE (00:07)
--- NOTE | 2018-07-15 00:12 | Event Note ---
Date of Encounter: 07/15/18 Time of Encounter: 00:00 Alerted by pts. nurse DEBORAH Dahl to come to 3A22 to see pt. who was agitated, cussing, and kicking at bed. Read Psych note regarding extra dosing outside of CIWA scale. Discussed pt. w/Dr. Shoemaker w/recommendation to order 2 mg Ativan IVP ONCE for AGITATION. Pt. not meeting CIWA scale currently, but clearly agitated. Order placed. Sitter in place. Pt. admitted w/suicidal ideations. Pt. to be monitored closely overnight.
[2018-07-15] MEDS ORDERED: diazePAM 5 MG TABLET PO ONE ×2 (04:01→12:55)
[2018-07-15] MEDS: *HR* Heparin 5,000 UNIT/ML VIAL SQ SCH (04:11)
[2018-07-15] MEDS: 0.9 % Sodium Chloride 1,000 ML IVC SCH ×2 (04:19→08:28)
[2018-07-15] MEDS: *HR* LORazepam 2 MG/ML VIAL IVP PRN (08:53)
--- NOTE | 2018-07-15 09:23 | Discharge Summary ---
- NOTES TO OUTPATIENT PROVIDER Notes to Outpatient Provider: Patient admitted for suicidal ideation in the setting of acute alcohol intoxication. Treated for withdrawal and underwent psych evaluation who deemed that the patient does not need to be admitted to psych unit. It was verified that he was given librium and zolpidem from [facility] back in late April this year and he will be given 3-5 days supply with follow up at [facility] later today or tomorrow. Date of Encounter: 07/15/18 Time of Encounter: 08:10 - Discharge Diagnosis (1) Acute hyperactive alcohol withdrawal delirium Priority: Primary Status: Acute (2) Suicidal ideation Priority: Secondary Status: Acute (3) Depression Priority: Secondary Status: Acute Qualifiers: Depression Type: major depressive disorder Qualified Code(s): F32.9 - Major depressive disorder, single episode, unspecified (4) DVT prophylaxis Priority: Secondary Status: Acute Hospital course: Mr. Perdomo is a 33 year old male with PMHx of depression, PTSD, chronic alcohol abuse, was admitted for suicidal ideation in the setting of acute alcohol intoxication. Treated for withdrawal and underwent psych evaluation who deemed that the patient does not need to be admitted to inpatient psych unit. It was verified that he was given librium and zolpidem from [facility] back in late April this year and he will be given 3-5 days supply with follow up at [facility] later today or tomorrow. His CIWA scores were less than 5 for the last 24 hours prior to the discharge. Discharge discussed with: patient, nurse - Time Spent with Patient Total time spent providing and/or coordinating discharge services: - Discharge Medications Prescriptions: Chlordiazepoxide [Librium] 25 mg PO Q6H PRN 3 Days #12 capsule PRN Reason: Alcohol Withdrawal Zolpidem [Ambien] 5 mg PO HS 5 Days #5 tablet Home Medications: Prazosin HCl [Minipress] 5 mg PO HS 07/13/18 [History] Chlordiazepoxide [Librium] 25 mg PO Q6H PRN 3 Days #12 capsule 07/15/18 [Rx] Zolpidem [Ambien] 5 mg PO HS 5 Days #5 tablet 07/15/18 [Rx] Allergies/Adverse Reactions: 3 Allergy/AdvReac Type Severity Reaction Status Date / Time No Known Allergies Allergy Verified 07/13/18 09:25 Date of admission: 07/13/18 07:56 Primary care physician: PCP NONE Consults: 07/13/18 10:52 Consult to Psychiatry [CONS] Routine Consulting Provider: Psychiatry [facility] Reason consult: Medication recommendation Other reason and/or additional details: suicidal ideation - Constitutional Vitals: Temp Pulse Resp BP Pulse Ox 98.3 F 65 16 142/89 96 07/15/18 07:37 07/15/18 07:37 07/15/18 07:37 07/15/18 07:37 07/15/18 07:37 Exam: General: Alert and oriented, mild distress HEENT:EOMI, pupils equal, round and reactive. Cardiovascular:Normal S1 & S2, No JVD. Pulse regular. Lungs: clear to auscultation, no wheezes/rales Abdomen:Soft, non-tender, no rigidity. Extremities:No deformity or swelling, mildly tremulous on both UE Neuro: Alert and oriented 3, no focal deficits. - Patient Status Disposition: Home, Self-Care Condition: Fair - Discharge Instructions Instructions: Depression (DC) Follow Up With: NONE,PCP [Primary Care Provider] - - Diet and Activity Activity: resume usual activities as tolerated Diet: advance to your usual diet
[2018-07-15 10:50] VITALS: BP 142/81
== END 2018-07-15 15:47 ==
LOC: EMEROOARM 04:03 → 3ANU 04:03 → SUATTDRO 07:56 → 3ANU 07:57
PROVIDERS: ADMIT Student in an Organized Health Care Education/Training Program; ATTEND Internal Medicine